=== PATIENT | female | born 1960 | race African-American/Black ===

== ENCOUNTER 2017-06-10 15:37 | Emergency (ER) | payer OTHER, SELFPAY ==
[2017-06-10] MEDS ORDERED: Sodium Chloride 0.9% 1,000 ML IV ONE (15:56)
--- NOTE | 2017-06-10 16:01 | EDM.PDOC ---
ED HPI GENERAL MEDICAL PROBLEM - General Chief Complaint: General Stated Complaint: DIZZINESS Time Seen by Provider: 06/10/17 15:40 Source of Information: Reports: Patient History Limitations: Reports: No Limitations - History of Present Illness INITIAL COMMENTS - FREE TEXT/NARRATIVE: History of present illness: 57-year-old female presenting with an ambiguous complaint of a hot stomach, patient indicates dhe had these symptoms approximately 2 [place] and it led to palpitations and some global distress that required her to be admitted and placed on a drip patient is unable to explain in further detail what all was involved and what her actual diagnosis was, or the final outcome. Review of systems: As per history of present illness and below otherwise all systems reviewed and negative. Past medical history: As per history of present illness and as reviewed below otherwise noncontributory. Surgical history: As per history of present illness and as reviewed below otherwise noncontributory. Social history: No reported history of drug or alcohol abuse. Family history: As per history of present illness and as reviewed below otherwise noncontributory. Physical exam: HEENT: Atraumatic, normocephalic, pupils reactive, negative for conjunctival pallor or scleral icterus, mucous membranes moist, throat clear, neck supple, nontender, trachea midline. Lungs: Clear to auscultation, breath sounds equal bilaterally, chest nontender. Heart: S1S2, regular, negative for clicks, rubs, or JVD. Abdomen: Soft, nondistended, nontender. Negative for masses or hepatosplenomegaly. Negative for costovertebral tenderness. Pelvis: Stable nontender. Genitourinary: Deferred. Rectal: Deferred. Extremities: Atraumatic, negative for cords or calf pain. Neurovascular unremarkable. Neuro: Awake, alert, oriented. Cranial nerves II through XII unremarkable. Cerebellum unremarkable. Motor and sensory unremarkable throughout. Exam nonfocal. Goal assessment is benign save the subjective complaint as noted in the history of present illness Diagnostics: [CBC, CMP, lipase, amylase, EKG, troponin] Therapeutics: [IV fluid] Impression: [#1 worried well #2 hypertension] Plan: [Follow-up with outpatient PCP for blood pressure management] Definitive disposition and diagnosis as appropriate pending reevaluation and review of above. - Related Data Allergies Allergy/AdvReac Type Severity Reaction Status Date / Time No Known Allergies Allergy Verified 06/10/17 15:48 Home Meds: Home Meds amLODIPine Besylate [Norvasc] 2.5 mg PO DAILY 06/10/17 [History] Past Medical History - Past Health History Medical/Surgical History: Denies Medical/Surgical History Cardiovascular History: Reports: Hypertension Social & Family History - Family History Family Medical History: Noncontributory - Tobacco Use Smoking Status *Q: Never Smoker - Caffeine Use Caffeine Use: Reports: Tea - Recreational Drug Use Recreational Drug Use: No ED ROS GENERAL - Review of Systems Review Of Systems: See Below (see history of present illness) ED EXAM, GENERAL - Physical Exam Exam: See Below (See history of present illness) Course - Vital Signs Last Recorded V/S: Last Vital Signs Temp 36.6 C 06/10/17 15:37 Pulse 80 06/10/17 15:37 Resp 18 06/10/17 15:37 BP 175/91 H 06/10/17 15:37 Pulse Ox 100 06/10/17 15:37 - Orders/Labs/Meds Orders: Active Orders 24 hr Category Date Time Status EKG Documentation Completion [RC] STAT Care 06/10/17 15:56 Active Abdomen Pelvis w Cont [CT] Stat Exams 06/10/17 16:56 Taken Labs: Laboratory Tests 06/10/17 06/10/17 06/10/17 Range/Units 16:14 16:20 16:20 WBC 5.73 (4.0-11.0) K/uL RBC 4.11 L (4.30-5.90) M/uL Hgb 12.3 (12.0-16.0) g/dL Hct 35.7 L (36.0-46.0) % MCV 86.9 (80.0-98.0) fL MCH 29.9 (27.0-32.0) pg MCHC 34.5 (31.0-37.0) g/dL RDW Std Deviation 42.7 (28.0-62.0) fl RDW Coeff of Lucita 13 (11.0-15.0) % Plt Count 227 (150-400) K/uL MPV 9.40 (7.40-12.00) fL Neut % (Auto) 37.0 L (48.0-80.0) % Lymph % (Auto) 51.3 H (16.0-40.0) % Rawlins % (Auto) 8.9 (0.0-15.0) % Eos % (Auto) 2.1 (0.0-7.0) % Baso % (Auto) 0.7 (0.0-1.5) % Neut # (Auto) 2.1 (1.4-5.7) K/uL Lymph # (Auto) 2.9 H (0.6-2.4) K/uL Rawlins # (Auto) 0.5 (0.0-0.8) K/uL Eos # (Auto) 0.1 (0.0-0.7) K/uL Baso # (Auto) 0.0 (0.0-0.1) K/uL Nucleated RBC % 0.0 /100WBC Nucleated RBCs # 0 K/uL Sodium 141 (136-146) mmol/L Potassium 3.8 (3.5-5.1) mmol/L Chloride 104 (98-110) mmol/L Carbon Dioxide 28 (21-31) mmol/L BUN 9 (6.0-23.0) mg/dL Creatinine 1.0 (0.6-1.5) mg/dL Est Cr Clr Drug Dosing TNP Estimated GFR (MDRD) > 60.0 ml/min Glucose 93 (60-110) mg/dL Calcium 9.6 (8.8-10.8) mg/dL Total Bilirubin 0.3 (0.1-1.5) mg/dL AST 26 (5-40) IU/L ALT 14 (8-54) IU/L Alkaline Phosphatase 77 (40-150) Troponin I (0.0-0.29) NG/ML Total Protein 8.7 H (6.0-8.0) g/dL Albumin 4.2 (3.5-5.0) g/dL Globulin 4.5 H (2.0-3.5) g/dL Albumin/Globulin Ratio 0.9 L (1.3-2.8) Amylase 63 (10-90) U/L Lipase 43 (7-80) U/L Urine Color YELLOW Urine Appearance CLEAR Urine pH 7.0 (5.0-8.0) Ur Specific Beaman <= 1.005 (1.001-1.035) Urine Protein NEGATIVE (NEGATIVE) mg/dL Urine Glucose (UA) NEGATIVE (NEGATIVE) mg/dL Urine Ketones NEGATIVE (NEGATIVE) mg/dL Urine Occult Blood SMALL H (NEGATIVE) Urine Nitrite NEGATIVE (NEGATIVE) Urine Bilirubin NEGATIVE (NEGATIVE) Urine Urobilinogen 0.2 (<2.0) EU/dL Ur Leukocyte Esterase NEGATIVE (NEGATIVE) Urine RBC 0-2 (0-2/HPF) Urine WBC 0-1 (0-5/HPF) Ur Epithelial Cells RARE (NONE-FEW) Urine Bacteria RARE (NEGATIVE) 06/10/17 Range/Units 16:20 WBC (4.0-11.0) K/uL RBC (4.30-5.90) M/uL Hgb (12.0-16.0) g/dL Hct (36.0-46.0) % MCV (80.0-98.0) fL MCH (27.0-32.0) pg MCHC (31.0-37.0) g/dL RDW Std Deviation (28.0-62.0) fl RDW Coeff of Lucita (11.0-15.0) % Plt Count (150-400) K/uL MPV (7.40-12.00) fL Neut % (Auto) (48.0-80.0) % Lymph % (Auto) (16.0-40.0) % Rawlins % (Auto) (0.0-15.0) % Eos % (Auto) (0.0-7.0) % Baso % (Auto) (0.0-1.5) % Neut # (Auto) (1.4-5.7) K/uL Lymph # (Auto) (0.6-2.4) K/uL Rawlins # (Auto) (0.0-0.8) K/uL Eos # (Auto) (0.0-0.7) K/uL Baso # (Auto) (0.0-0.1) K/uL Nucleated RBC % /100WBC Nucleated RBCs # K/uL Sodium (136-146) mmol/L Potassium (3.5-5.1) mmol/L Chloride (98-110) mmol/L Carbon Dioxide (21-31) mmol/L BUN (6.0-23.0) mg/dL Creatinine (0.6-1.5) mg/dL Est Cr Clr Drug Dosing Estimated GFR (MDRD) ml/min Glucose (60-110) mg/dL Calcium (8.8-10.8) mg/dL Total Bilirubin (0.1-1.5) mg/dL AST (5-40) IU/L ALT (8-54) IU/L Alkaline Phosphatase (40-150) Troponin I < 0.10 (0.0-0.29) NG/ML Total Protein (6.0-8.0) g/dL Albumin (3.5-5.0) g/dL Globulin (2.0-3.5) g/dL Albumin/Globulin Ratio (1.3-2.8) Amylase (10-90) U/L Lipase (7-80) U/L Urine Color Urine Appearance Urine pH (5.0-8.0) Ur Specific Beaman (1.001-1.035) Urine Protein (NEGATIVE) mg/dL Urine Glucose (UA) (NEGATIVE) mg/dL Urine Ketones (NEGATIVE) mg/dL Urine Occult Blood (NEGATIVE) Urine Nitrite (NEGATIVE) Urine Bilirubin (NEGATIVE) Urine Urobilinogen (<2.0) EU/dL Ur Leukocyte Esterase (NEGATIVE) Urine RBC (0-2/HPF) Urine WBC (0-5/HPF) Ur Epithelial Cells (NONE-FEW) Urine Bacteria (NEGATIVE) Meds: Medications Discontinued Medications Generic Name Dose Route Start Last Admin Trade Name Freq PRN Reason Stop Dose Admin Sodium Chloride 1,000 mls @ 999 mls/hr 06/10/17 15:56 06/10/17 16:24 Normal Saline IV 06/10/17 16:56 999 mls/hr STAT ONE Administration Iopamidol 100 ml 06/10/17 17:28 06/10/17 17:30 Isovue Multipack-370 (76%) IVPUSH 06/10/17 17:29 100 ml ONETIME STA Administration Departure - Departure Time of Disposition: 18:31 Disposition: Home, Self-Care 01 Condition: Good Clinical Impression: Worried well, Hypertension - Discharge Information Referrals: PCP,None [Primary Care Provider] - Forms: ED Department Discharge Additional Instructions: The following information is given to patients seen in the emergency department who are being discharged to home. This information is to outline your options for follow-up care. We provide all patients seen in our emergency department with a follow-up referral. The need for follow-up, as well as the timing and circumstances, are variable depending upon the specifics of your emergency department visit. If you don't have a primary care physician on staff, we will provide you with a referral. We always advise you to contact your personal physician following an emergency department visit to inform them of the circumstance of the visit and for follow-up with them and/or the need for any referrals to a consulting specialist. The emergency department will also refer you to a specialist when appropriate. This referral assures that you have the opportunity for follow-up care with a specialist. All of these measure are taken in an effort to provide you with optimal care, which includes your follow-up. Under all circumstances we always encourage you to contact your private physician who remains a resource for coordinating your care. When calling for follow-up care, please make the office aware that this follow-up is from your recent emergency room visit. If for any reason you are refused follow-up, please contact the [facility] Emergency Department at and asked to speak to the emergency department charge nurse. Follow-up with a primary care provider for further workup and evaluation Return to ED as needed as discussed [facility] [address] [place] [address] - My Orders Last 24 Hours: My Active Orders 06/10/17 15:56 EKG Documentation Completion [RC] STAT 06/10/17 16:56 Abdomen Pelvis w Cont [CT] Stat - Assessment/Plan Last 24 Hours: My Active Orders 06/10/17 15:56 EKG Documentation Completion [RC] STAT 06/10/17 16:56 Abdomen Pelvis w Cont [CT] Stat
[2017-06-10 16:51] LABS: CHLORIDE,CL 104 mmol/L (98-110); SODIUM,NA 141 mmol/L (136-146)
[2017-06-10] MEDS ORDERED: Iopamidol 755 MG/ML 500 ML Multipack Bottle IVPUSH STA (17:28)
[2017-06-10 19:17] VITALS: BP 158/94
--- NOTE | 2017-06-13 11:50 | CT ---
EXAM DATE: 06/10/17 PATIENT'S AGE: 57 Patient: ZAMZAM DUARTE Facility: [place], [place] Site . Site : 1960 Study: CT Abdomen/Pelvis [id number]/8/2017 5:45:20 PM Ordering Physician: Doctor Valenzuela Final Report: INDICATION: pain, no appetite, dizzy, weak TECHNIQUE: CT abdomen and pelvis acquired with IV contrast. COMPARISON: None FINDINGS: Lower chest: Unremarkable. Liver: Unremarkable. Spleen: Unremarkable. Pancreas: Unremarkable. Gallbladder and bile ducts: Unremarkable. Kidneys: Scattered subcentimeter foci of low attenuation throughout the left kidney which are too small to accurately characterize by CT. Adrenal glands: Unremarkable. GI tract: Moderate amount of stool. The appendix is not visualized. . Vascular structures: Negative. No sign of aneurysm. Lymph nodes: Unremarkable. Miscellaneous: Fat containing umbilical hernia. Questionable mild stranding about the urinary bladder. No free air or significant free fluid. Pelvic Organs: Unremarkable. Bones: Degenerative changes. IMPRESSION: Questionable mild stranding about the urinary bladder. Please correlate for acute cystitis. Otherwise, no acute abnormality. Dictated by Sebas Seals MD @ 06/10/2017 6:17:34 PM Dictated by: Sebas Seals MD @ 06/10/2017 18:17:42 (Electronic Signature) Report Signed by Proxy. [facility]
== END 2017-06-10 18:40 | disposition home or self-care (01) ==
LOC: MW.ED 15:37
DX: I10 Essential (primary) hypertension (principal); Z79.899 Other long term (current) drug therapy
CPT/HCPCS: 36415; 74177; 80053; 81001; 82150; 83690; 84484; 85025; 93005; 96360; 99285; J7040; Q9967; 99283

== ENCOUNTER 2020-08-27 11:05 | Emergency (ER) | payer SELFPAY ==
[2020-08-27] MEDS ORDERED: diphenhydrAMINE 50 MG/ML SDV IVPUSH ONE (11:34)
[2020-08-27] MEDS ORDERED: Ketorolac 15 MG/ML SDV IVPUSH ONE (11:34)
[2020-08-27] MEDS ORDERED: Prochlorperazine 10 MG/2 ML SDV IVPUSH ONE (11:34)
[2020-08-27] MEDS ORDERED: Dextrose 5%-Lactated Ringers 1,000 ML IV SCH (11:45)
[2020-08-27 12:39] LABS: BLOOD UREA NITROGEN,BUN 7 mg/dL (7.0-18.0); CARBON DIOXIDE,CO2 28.8 mmol/L (21.0-32.0); CHLORIDE,CL 96 mmol/L (98-107); GLUCOSE RANDOM 114 mg/dL (74-106); POTASSIUM,K 3.4 mmol/L (3.5-5.1); SODIUM,NA 133 mmol/L (136-145)
[2020-08-27] MEDS ORDERED: Potassium Chloride 10% 20 MEQ/15 ML Soln 15 ML UD Cup PO ONE (12:55)
[2020-08-27] MEDS: Potassium Chloride 20 MEQ Tab.ER PO ONE ×2 (13:10→13:12)
--- NOTE | 2020-08-27 13:36 | EDM.PDOC ---
ED HPI GENERAL MEDICAL PROBLEM - General Chief Complaint: Headache Stated Complaint: ABDOMINAL PAIN WEAK Time Seen by Provider: 08/27/20 11:17 - History of Present Illness INITIAL COMMENTS - FREE TEXT/NARRATIVE: CHIEF COMPLAINT(S): Headache HISTORY OF PRESENT ILLNESS: This is a 60-year-old woman with a past medical history of hypertension not on any medication who comes to the emergency department with a chief complaint of headache. The patient states that approximately 1-1/2 days ago she drank spoiled milk and found that it was . She states that since that time she started to feel weak and has a bifrontal headache which she describes as throbbing and nonradiating. She denies any associated symptoms such as blurry vision, diplopia, trouble walking, trouble speaking, trouble swallowing. She denies any head injury. She states that she took aspirin but it did not help. She denies any aggravating symptoms. She denies any sick contacts, sore throat, nasal congestion or cough. She states that she did have 2 episodes of diarrhea which has resolved. She denies any vomiting. She denies any rash, hemoptysis, or neck pain. She denies any other symptoms. She states that she has had similar headaches in the past when she does not get sleep. She states that the headache has progressively gotten worse and did not start maximally at onset. REVIEW OF SYSTEMS: Constitutional: Denies fever, chills. Eyes: Denies eye pain Ears, Nose, Mouth, & Throat: Denies earache Cardiovascular: Denies chest pain Respiratory: Denies shortness of breath Gastrointestinal: Denies Nausea, vomiting, diarrhea, hematochezia. Genitourinary: Denies hematuria Skin:Denies a rash Neurological: Positive for headache. Denies blurred vision, diplopia, numbness, tingling, weakness Psychiatric: Denies depression PAST MEDICAL HISTORY: As per history of present illness and as reviewed below otherwise noncontributory. SURGICAL HISTORY: As per history of present illness and as reviewed below otherwise noncontributory. SOCIAL HISTORY: As per history of present illness and as reviewed below otherwise noncontributory. FAMILY HISTORY: As per history of present illness and as reviewed below otherwise noncontributory. EXAMINATION OF ORGAN SYSTEMS/BODY AREAS: Constitutional: Blood pressure is 136/85, heart rate 90, respiratory rate 18 with an oxygen saturation 98% on room air. Temperature 37.1 General: Overall well-appearing woman who is in no acute distress Psychiatric: Appropriate mood and affect. Eyes: No scleral icterus or conjunctival erythema pupils were 2 mm and reactive bilaterally. Extraocular movements intact. No vertical or horizontal nystagmus. ENMT: Moist mucous membranes. No pharyngeal erythema nasal turbinates are clear without any erythema or drainage. Uvula is midline. Tongue protrudes midline. Cardiovascular: Regular, rate, and rythym. No gallops, murmurs, or rubs. Bilateral upper extremity pulses symmetric and intact. No peripheral edema. No JVD. Respiratory: Lungs clear to auscultation bilaterally. No wheezes, rales, or rhonchi. Gastrointestinal: Soft, non-tender, non-distended. Normoactive bowel sounds Genitourinary: No suprapubic tenderness Musculoskeletal: Normal range of motion. Skin: No lesions or abrasions. Neurological: AOx4. CN grossly intact. Stregth 5/5 in bilateral upper and lower extremity. Sensation is intact bilaterally in upper and lower extremity. Gait appears normal. Finger to nose, heel to patterson, rapid alternating movements intact. MEDICAL DECISION MAKING AND COURSE IN THE ED WITH INTERPRETATION/REVIEW OF DIAGNOSTIC STUDIES: This is a 60-year-old woman with a past medical history of hypertension not on medication who comes to the emergency department with headache which is bifrontal in nature not associated with any other symptoms wi th a nonfocal neurological exam who has normal vital signs. At this time we will obtain screening labs and provide the patient with Toradol, Compazine, Benadryl and a 1 L bolus of D5 lactated Ringer's. We we will reevaluate the patient for symptomatic improvement. At this time I do not believe this blood milk has anything to do with her headache and this is likely a simple headache versus migraine. Laboratory: CBC reveals a normocytic anemia with a hemoglobin of 11.8 and hematocrit of 35.2. CMP reveals hyponatremia at 133, hypokalemia at 94, hypochloremia at 96 no metabolic acidosis with hyperglycemia at 114. I did provide the patient with potassium supplementation by mouth. On reevaluation, the patient reported improvement and felt much better. I did discuss with her at this time that I do believe this is a simple headache versus a migraine. I discussed with her the use of ibuprofen for which I will provide her a prescription with. She is to return to the emergency department for any new or worsening symptoms. She was amenable to discharge at this time and had no further questions. I did encourage her to follow-up with her primary care physician for further blood pressure management. DISPOSITION: The patient was discharged home in stable condition. The patient will follow up with PCP CONDITION: Fair PROCEDURES: None FINAL IMPRESSION(S)/DIAGNOSES: 1. Acute headache likely simple headache versus migraine Dilan Verma M.D. - Related Data Allergies Allergy/AdvReac Type Severity Reaction Status Date / Time No Known Allergies Allergy Verified 08/27/20 11:21 Home Meds: Home Meds amLODIPine Besylate [Norvasc] 2.5 mg PO DAILY 06/10/17 [History] Ibuprofen [Motrin] 600 mg PO TID #21 tab 08/27/20 [Rx] Past Medical History - Past Health History Medical/Surgical History: Denies Medical/Surgical History Cardiovascular History: Reports: Hypertension Social & Family History - Family History Family Medical History: No Pertinent Family History - Tobacco Use Tobacco Use Status *Q: Never Tobacco User - Caffeine Use Caffeine Use: Reports: Tea - Recreational Drug Use Recreational Drug Use: No ED ROS GENERAL - Review of Systems Review Of Systems: See Below ED EXAM, GENERAL - Physical Exam Exam: See Below Course - Vital Signs Last Recorded V/S: Last Vital Signs Temp 36.6 C 08/27/20 13:47 Pulse 63 08/27/20 13:47 Resp 16 08/27/20 13:47 BP 135/75 08/27/20 13:47 Pulse Ox 99 08/27/20 13:47 - Orders/Labs/Meds Labs: Laboratory Tests 08/27/20 08/27/20 Range/Units 11:40 11:40 WBC 4.17 (4.0-11.0) K/uL RBC 3.93 L (4.30-5.90) M/uL Hgb 11.8 L (12.0-16.0) g/dL Hct 35.2 L (36.0-46.0) % MCV 89.6 (80.0-98.0) fL MCH 30.0 (27.0-32.0) pg MCHC 33.5 (31.0-37.0) g/dL RDW Std Deviation 43.0 (28.0-62.0) fl RDW Coeff of Lucita 13 (11.0-15.0) % Plt Count 176 (150-400) K/uL MPV 9.60 (7.40-12.00) fL Neut % (Auto) 80.0 (48.0-80.0) % Lymph % (Auto) 10.6 L (16.0-40.0) % [place]pin % (Auto) 8.9 (0.0-15.0) % Eos % (Auto) 0.0 (0.0-7.0) % Baso % (Auto) 0.5 (0.0-1.5) % Neut # (Auto) 3.3 (1.4-5.7) K/uL Lymph # (Auto) 0.4 L (0.6-2.4) K/uL Gilpin # (Auto) 0.4 (0.0-0.8) K/uL Eos # (Auto) 0.0 (0.0-0.7) K/uL Baso # (Auto) 0.0 (0.0-0.1) K/uL Nucleated RBC % 0.0 /100WBC Nucleated RBCs # 0 K/uL Sodium 133 L (136-145) mmol/L Potassium 3.4 L (3.5-5.1) mmol/L Chloride 96 L (98-107) mmol/L Carbon Dioxide 28.8 (21.0-32.0) mmol/L BUN 7 (7.0-18.0) mg/dL Creatinine 0.8 (0.6-1.0) mg/dL Est Cr Clr Drug Dosing 58.41 mL/min Estimated GFR (MDRD) > 60.0 ml/min Glucose 114 H (74-106) mg/dL Calcium 8.8 (8.5-10.1) mg/dL Total Bilirubin 0.3 (0.2-1.0) mg/dL AST 30 (15-37) IU/L ALT 30 (14-63) IU/L Alkaline Phosphatase 88 (46-116) U/L Total Protein 8.7 H (6.4-8.2) g/dL Albumin 4.2 (3.4-5.0) g/dL Globulin 4.5 H (2.6-4.0) g/dL Albumin/Globulin Ratio 0.9 (0.9-1.6) Meds: Medications Discontinued Medications Generic Name Dose Route Start Last Admin Trade Name Jose A PRN Reason Stop Dose Admin Diphenhydramine HCl 50 mg 08/27/20 11:34 08/27/20 11:55 Benadryl IVPUSH 08/27/20 11:35 50 mg ONETIME ONE Administration Dextrose/Lactated Ringer's 1,000 mls @ 999 mls/hr 08/27/20 11:45 08/27/20 11:52 Dextrose 5%-Lactated Ringers IV 999 mls/hr ASDIRECTED TERRENCE Administration Ketorolac Tromethamine 15 mg 08/27/20 11:34 08/27/20 11:54 Toradol IVPUSH 08/27/20 11:35 15 mg ONETIME ONE Administration Potassium Chloride 40 meq 08/27/20 12:55 08/27/20 13:04 Potassium Chloride Solution PO 08/27/20 12:56 Not Given ONETIME ONE Potassium Chloride 40 meq 08/27/20 13:00 08/27/20 13:12 Klor-Con M20 PO 08/27/20 13:01 Not Given ONETIME ONE Prochlorperazine Edisylate 10 mg 08/27/20 11:34 08/27/20 11:54 Compazine IVPUSH 08/27/20 11:35 10 mg ONETIME ONE Administration Departure - Departure Time of Disposition: 13:35 Disposition: Home, Self-Care 01 Condition: Fair Clinical Impression: Tension-type headache - Discharge Information *PRESCRIPTION DRUG MONITORING PROGRAM REVIEWED*: No *COPY OF PRESCRIPTION DRUG MONITORING REPORT IN PATIENT TEGAN: No Prescriptions: Ibuprofen [Motrin] 600 mg PO TID #21 tab Instructions: General Headache Without Cause, Hfbc-to-Bfmo Referrals: PCP,None [Primary Care Provider] - Forms: ED Department Discharge Additional Instructions: The patient is informed of any results of their evaluation and diagnostic workup and all questions are answered. They are given discharge instructions and return precautions. The patient is stable for discharge. The patient states they understand and agree with the plan and that they will return if their symptoms get worse or if they have any new concerns. The following information is given to patients seen in the emergency department who are being discharged to home. This information is to outline your options for follow-up care. We provide all patients seen in our emergency department with a follow-up referral. The need for follow-up, as well as the timing and circumstances, are variable depending upon the specifics of your emergency department visit. If you don't have a primary care physician on staff, we will provide you with a referral. We always advise you to contact your personal physician following an emergency department visit to inform them of the circumstance of the visit and for follow-up with them and/or the need for any referrals to a consulting specialist. The emergency department will also refer you to a specialist when appropriate. This referral assures that you have the opportunity for follow-up care with a specialist. All of these measure are taken in an effort to provide you with optimal care, which includes your follow-up. Under all circumstances we always encourage you to contact your private physician who remains a resource for coordinating your care. When calling for follow-up care, please make the office aware that this follow-up is from your recent emergency room visit. If for any reason you are refused follow-up, please contact the [facility] Emergency Department at and asked to speak to the emergency department charge nurse. Today your evaluated on an emergency basis. Your work-up was negative. Given that you had improvement with the treatment in the hospital I did prescribe you with ibuprofen to be used as needed for headache relief. Please follow-up with your primary care physician within 1 week regarding your hypertension and encourage you to continue with treatment if prescribed a hypertensive. If you were to have any new or worsening symptoms such as worsening headache, double vision, trouble walking, trouble speaking, trouble swallowing I would like you to return to the emergency department for any new or worsening symptoms. [facility] - [facility] [address] [place] [id number] [address] [address] Sepsis Event Note (ED) - Evaluation Sepsis Screening Result: No Definite Risk - Focused Exam Vital Signs: Vital Signs Temp Pulse Resp BP Pulse Ox 08/27/20 13:47 36.6 C 63 16 135/75 99 08/27/20 13:09 67 16 149/74 H 99 08/27/20 12:02 92 16 143/82 H 96 08/27/20 11:16 37.1 C 90 18 136/85 98
[2020-08-27 13:48] VITALS: BP 135/75; PULSE 63
== END 2020-08-27 13:51 | disposition home or self-care (01) ==
LOC: MW.ED 11:05
DX: G44.209 Tension-type headache, unspecified, not intractable (principal); I10 Essential (primary) hypertension; Z79.899 Other long term (current) drug therapy
CPT/HCPCS: 36415; 80053; 85025; 96374; 96375; 99283; J0780; J1200; J1885; J7121; A9270-GY